=== PATIENT | male | born 1960 | race Caucasian/White ===

== ENCOUNTER 2017-05-19 07:42 | Emergency (ER) | END 2017-05-19 13:31 | disposition left against medical advice (07) ==

== ENCOUNTER 2018-08-06 10:45 | Inpatient (IN) | payer OTHER ==
[2018-08-06] VITALS (16 sets, daily range): BP systolic 119–164; BP diastolic 71–104; PULSE 87–104; RESP 13–26; Ht 188 cm; Wt 101.5 kg
[~2018-08-06] VITALS: Ht 188 cm; Wt 101.5 kg
[2018-08-06] MEDS ORDERED: SOD CHLORIDE 0.9% 1,000 ML IV STA (10:50)
[2018-08-06] MEDS ORDERED: PANTOPRAZOLE IV 80 MG in SOD CHLORIDE 0.9% 100 ML IVPB STA (10:50)
[2018-08-06] MEDS ORDERED: CEFTRIAXONE 1 GM/50 ML (PMX) 50 ML IVPB STA (10:52)
[2018-08-06] MEDS: PANTOPRAZOLE IV 80 MG in SOD CHLORIDE 0.9% 100 ML IVPB STA ×2 (10:52→11:30)
[2018-08-06] MEDS ORDERED: OCTREOTIDE 500 MCG in SOD CHLORIDE 0.9% 49 ML IV STA (10:52)
[2018-08-06] MEDS ORDERED: ONDANSETRON 4 MG INJ IV STA (10:52)
[2018-08-06] MEDS ORDERED: OCTREOTIDE 50 MCG in SOD CHLORIDE 0.9% 25 ML IVPB STA (10:52)
[2018-08-06] MEDS ORDERED: SOD CHLORIDE 0.9% 0 ML IV ONE (11:40)
[2018-08-06] MEDS ORDERED: FURO40TA4 PO (11:53)
[2018-08-06] MEDS ORDERED: SOD CHLORIDE 0.9% 1,000 ML IV SCH (13:00)
[2018-08-06] MEDS ORDERED: ACETAMINOPHEN 325 MG TAB PO PRN (13:00)
[2018-08-06] MEDS ORDERED: ACETAMINOPHEN 650 MG SUPP PR PRN (13:00)
[2018-08-06] MEDS ORDERED: DOCUSATE SODIUM 100 MG CAP PO PRN (13:00)
[2018-08-06] MEDS ORDERED: ONDANSETRON 4 MG INJ IV PRN (13:00)
[2018-08-06] MEDS ORDERED: NACL 0.9% 3 ML SYG IV SCH (13:00)
[2018-08-06] MEDS ORDERED: BISACODYL (EC) 5 MG TAB PO PRN (13:00)
--- NOTE | 2018-08-06 13:40 | ERD ---
ER Documentation Chief Complaint Chief Complaint BIB [facility] FOR EVAL OF HEMETEMESIS. HX OF LIVER CHIRHOSIS. HPI 57-year-old male with a history of alcoholism and liver cirrhosis brought in by ambulance from home for hematemesis and melena that started today. He had multiple loose bowel movements with black stool. He has had intermittent hematemesis. He is not complaining of abdominal pain or chest pain. He does complain of nausea at this time. He states that he was at another hospital about 3 weeks ago for generalized weakness and was noted to have anemia for which he did receive a blood transfusion. He denies any history of GI bleed. No recent fevers or chills. ROS All systems reviewed and are negative except as per history of present illness. Medications Home Meds Reported Medications Furosemide* (Furosemide*) 40 Mg Tablet, 40 MG PO DAILY, TAB 08/06/18 Allergies Allergies: Coded Allergies: No Known Allergy (Unverified , 08/06/18) PMhx/Soc History of Surgery: Yes (UMBILICAL HERNIA REPAIR) Anesthesia Reaction: No Hx Neurological Disorder: No Hx Respiratory Disorders: No Hx Cardiac Disorders: Yes (HTN) Hx Psychiatric Problems: Yes (ETOH ABUSE) Hx Miscellaneous Medical Probl: Yes (LIVER CIRRHOSIS) Hx Alcohol Use: Yes (ETOH ABUSE) Hx Substance Use: No Hx Tobacco Use: No Smoking Status: Unknown if ever smoked FmHx Family History: No diabetes Physical Exam Vitals Vital Signs Date Temp Pulse Resp B/P (MAP) Pulse Ox O2 O2 Flow FiO2 Time Delivery Rate 08/06/18 Nasal 3 11:00 Cannula 08/06/18 98.2 115 18 151/72 99 10:52 (98) Physical Exam Const: Ill-appearing, pale, appears intoxicated Head: Atraumatic Eyes: Pale conjunctiva, PERRLA ENT: Dry oral mucosa. Normal External Ears, Nose and Mouth. Neck: Full range of motion. No meningismus. Resp: Clear to auscultation bilaterally Cardio: Tachycardic with regular rhythm, no murmurs. Abd: Soft, distended with ascites. Nontender to palpation. Normal bowel sounds Skin: Pale. No petechiae or rashes Back: No midline or flank tenderness Ext: No cyanosis, or edema Neur: Awake and alert, oriented, normal speech, no facial asymmetry, moving all extremities Psych: Normal Mood and Affect Result Diagram: 08/06/18 1103 08/06/18 1103 Results 24 hrs Laboratory Tests Test 08/06/18 11:03 White Blood Count 8.7 10^3/ul Red Blood Count 2.21 10^6/ul Hemoglobin 6.2 g/dl Hematocrit 20.5 % Mean Corpuscular Volume 92.8 fl Mean Corpuscular Hemoglobin 28.1 pg Mean Corpuscular Hemoglobin Concent 30.2 g/dl Red Cell Distribution Width 15.2 % Platelet Count 177 10^3/UL Mean Platelet Volume 10.3 fl Immature Granulocytes % 0.600 % Neutrophils % % Segmented Neutrophils % (Manual) 86 % Band Neutrophils % (Manual) 5 % Lymphocytes % % Lymphocytes % (Manual) 5 % Monocytes % % Monocytes % (Manual) 4 % Eosinophils % % Basophils % % Nucleated Red Blood Cells % 0.0 /100WBC Immature Granulocytes # 0.050 10^3/ul Neutrophils # 10^3/ul Neutrophils # (Manual) 7.5 10^3/ul Band Neutrophils # 0.4 10^3/ul Lymphocytes (Manual) 0.4 10^3/ul Lymphocytes # 10^3/ul Monocytes # 10^3/ul Monocytes # (Manual) 0.3 10^3/ul Eosinophils # 10^3/ul Basophils # 10^3/ul Nucleated Red Blood Cells # 10^3/ul Platelet Estimate NORMAL Giant Platelets 1 % Polychromasia 3+ Hypochromasia 2+ Poikilocytosis 1+ Anisocytosis 1+ Microcytosis 1+ Ovalocytes 1+ Prothrombin Time 16.3 Sec Prothrombin Time Ratio 1.3 INR International Normalized Ratio 1.30 Activated Partial Thromboplast Time 36.6 Sec Sodium Level 144 mmol/L Potassium Level 4.0 mmol/L Chloride Level 109 mmol/L Carbon Dioxide Level 24 mmol/L Anion Gap 11 Blood Urea Nitrogen 22 mg/dl Creatinine 0.70 mg/dl Est Glomerular Filtrat Rate mL/min > 60 mL/min Glucose Level 179 mg/dl Calcium Level 8.3 mg/dl Total Bilirubin 1.2 mg/dl Direct Bilirubin 0.00 mg/dl Indirect Bilirubin 1.2 mg/dl Aspartate Amino Transf (AST/SGOT) 35 IU/L Alanine Aminotransferase (ALT/SGPT) 14 IU/L Alkaline Phosphatase 70 IU/L Troponin I < 0.012 ng/ml Total Protein 6.3 g/dl Albumin 3.3 g/dl Globulin 3.00 g/dl Albumin/Globulin Ratio 1.10 Current Medications Medications Dose Sig/Azar Start Time Status Last (Trade) Ordered Route PRN Stop Time Admin Dose Reason Admin Sodium 1,000 ml @ Q1H STAT 08/06/18 DC 08/06/18 Chloride 1,000 mls/hr IV 10:50 08/06/18 11:28 11:49 Pantoprazole 100 ml @ ONCE STAT 08/06/18 DC 08/06/18 80 mg/Sodium 400 mls/hr IVPB 10:50 08/06/18 11:30 Chloride 11:04 Pantoprazole 100 ml @ ONCE STAT 08/06/18 DC 80 mg/Sodium 400 mls/hr IVPB 10:52 08/06/18 Chloride 11:06 Octreotide 26 ml @ Q16M STAT 08/06/18 DC 08/06/18 Acetate 50 100 mls/hr IVPB 10:52 08/06/18 11:29 mcg/ Sodium 11:07 Chloride Octreotide 50 ml @ 5 ONCE STAT 08/06/18 08/06/18 Acetate 500 mls/hr IV 10:52 08/06/18 11:29 mcg/ Sodium 20:51 Chloride Ondansetron 4 mg ONCE STAT 08/06/18 DC 08/06/18 HCl (Zofran IV 10:52 08/06/18 11:29 Inj) 10:54 Ceftriaxone 50 ml @ ONCE STAT 08/06/18 DC 08/06/18 Sodium 100 mls/hr IVPB 10:52 08/06/18 11:29 11:21 Sodium 0 ml @ 0 Q0M ONCE 08/06/18 DC Chloride mls/hr IV 11:40 08/06/18 11:43 Sodium 1,000 ml @ Q8H IV 08/06/18 Chloride 125 mls/hr 13:00 IV Flush 3 ml PER 08/06/18 (NS 3 ml) PROTOCOL IV 13:00 Ondansetron 4 mg Q4 PRN IV 08/06/18 HCl (Zofran NAUSEA/VOMITI 13:00 Inj) NG 650 mg Q6H PRN 08/06/18 Acetaminophen PO .PAIN 1-3 13:00 (Tylenol OR TEMP Tab) 650 mg Q6H PRN 08/06/[address] .PAIN 1-3 13:00 (Tylenol OR TEMP Supp) 1 tab Q6H PRN 08/06/18 Acetaminophen PO .MOD PAIN 13:00 / 4-6 Hydrocodone Bitart ([place] (5/325)) Morphine 2 mg Q4H PRN 08/06/18 Sulfate IV .SEVERE 13:00 (morphine) PAIN 7-10 Docusate 100 mg Q12H PRN 08/06/18 Sodium PO 13:00 (Colace) .CONSTIPATION Bisacodyl 5 mg DAILY PRN 08/06/18 (Dulcolax) PO 13:00 .CONSTIPATION Procedures/MDM EMERGENT LABS AND DIAGNOSTIC STUDIES: Lab Results above were reviewed and interpreted by me. CBC: severe anemia, no evidence of infection CMP: BUN elevation likely secondary to GI bleed. No evidence of clinically significant electrolyte abnormality, acidosis, renal failure, hypoglycemia, liver disease, or biliary obstruction Troponin within normal limits, not indicative of cardiac ischemia 12-lead EKG was interpreted by Dannielle Reinoso MD: Sinus tachycardia 117 bpm right axis deviation Normal intervals No acute ST or T wave changes suggestive of acute ischemia or STEMI. Radiology Results as interpreted by Radiology below were reviewed by Drake Reinoso MD: Chest x-ray does not show any acute abnormalities Initial Nursing notes reviewed. Previous Medical Records requested via the Electronic Health Record. EMERGENCY DEPARTMENT COURSE / MEDICAL DECISION MAKING: Patient is presenting with evidence of acute upper GI bleeding, likely secondary to varices. He was tachycardic upon arrival and met sirs criteria, however I do not suspect sepsis. I feel that his vital sign abnormalities including the tachycardia and tachypnea are secondary to acute blood loss. Patient's hemoglobin was noted to be very low at 6.2. He did have active hematemesis while in the ED. For this reason 2 units of uncrossed blood was ordered emergently. 2 more units was ordered for crossmatch. Patient's blood pressure remained normal and he had no episodes of hypotension while in the ER. He was started on Protonix and octreotide IV. He was given prophylactic antibiotics in the setting of GI bleeding. I spoke with the GI physician on-call, who plans on doing emergent endoscopy on the patient. Patient will be admitted to the ICU for further management and work-up. Critical Care Management of Hemorrhage and Symptomatic Anemia: Time: 45 minutes Treatments/Evaluations: Close monitoring and management of bleeding sources while maintaining tight balance of fluid. With judicious assessment of anemia, coagulopathy and thrombocytopenia, while considering correction with blood products and medical therapy. Accepting Care Team: Current data and ongoing care discussed. Time: Time of admission Primary Provider: Dr. Rodriguez Consulting: Dr. Quiles with Gastroenterology Outstanding Data: none Departure Diagnosis: Primary Impression: Acute upper GI hemorrhage Additional Impressions: History of cirrhosis Alcoholic Condition: Critical VISHNU REINOSO MD Aug 06, 2018 13:36
--- NOTE | 2018-08-06 13:46 | CONS ---
Assessment/Plan Assessment/Plan Hospital Course (Demo Recall) Impression: Upper GI bleeding/hematemesis. Severe anemia likely secondary to above. History of alcohol abuse. Plan: Continue transfusion. Emergency EGD today. Consultation Date/Type/Reason Admit Date/Time Aug 06, 2018 at 12:15 Date of Consultation: Aug 06, 2018 Type of Consult Gastroenterology Reason for Consultation Hematemesis Date/Time of Note DATE: 08/06/18 TIME: 13:43 Hx of Present Illness 57-year-old male heavy ethanol abuse. Previous episode of gastrointestinal bleeding of unknown source. Presents to the emergency room after 3 or more epis odes of significant hematemesis and associated multiple episodes of melena. He is found to have significant anemia. At this point blood transfusion has been initiated. The patient will be evaluated endoscopically. Review of Systems: [A 12 system, review was conducted and is negative except as noted in the HPI or here.] Past Medical History Episode of upper GI bleeding etiology unclear. Alcohol abuse. Medical History: other Home Meds Reported Medications Furosemide* (Furosemide*) 40 Mg Tablet, 40 MG PO DAILY, TAB 08/06/18 Medications Current Medications Octreotide Acetate 500 mcg/ Sodium Chloride 50 ml @ 5 mls/hr ONCE STAT IV Last administered on 08/06/18at 11:29; Admin Dose 5 MLS/HR; Start 08/06/18 at 10:52; Stop 08/06/18 at 20:51 Sodium Chloride 1,000 ml @ 125 mls/hr Q8H IV ; Start 08/06/18 at 13:00 IV Flush (NS 3 ml) 3 ml PER PROTOCOL IV ; Start 08/06/18 at 13:00 Ondansetron HCl (Zofran Inj) 4 mg Q4 PRN IV NAUSEA/VOMITING; Start 08/06/18 at 13:00 Acetaminophen (Tylenol Tab) 650 mg Q6H PRN PO .PAIN 1-3 OR TEMP; Start 08/06/18 at 13:00 Acetaminophen (Tylenol Supp) 650 mg Q6H PRN [place] .PAIN 1-3 OR TEMP; Start 08/06/18 at 13:00 Acetaminophen/ Hydrocodone Bitart ([place] (5/325)) 1 tab Q6H PRN PO .MOD PAIN 4- 6; Start 08/06/18 at 13:00 Morphine Sulfate (morphine) 2 mg Q4H PRN IV .SEVERE PAIN 7-10; Start 08/06/18 at 13:00 Docusate Sodium (Colace) 100 mg Q12H PRN PO .CONSTIPATION; Start 08/06/18 at 13:00 Bisacodyl (Dulcolax) 5 mg DAILY PRN PO .CONSTIPATION; Start 08/06/18 at 13:00 Allergies: Coded Allergies: No Known Allergy (Unverified , 08/06/18) Past Surgical History Hernia repair Family History Significant Family History: no pertinent family hx Social History Alcohol Use: heavy Smoking Status: Unknown if ever smoked Drug Use: none Exam/Review of Systems Exam Vitals Vital Signs Date Temp Pulse Resp B/P (MAP) Pulse Ox O2 O2 Flow FiO2 Time Delivery Rate 08/06/18 Nasal 3 11:00 Cannula 08/06/18 98.2 115 18 151/72 99 10:52 (98) Exam PHYSICAL EXAMINATION: GENERAL: Well developed, well nourished, alert & oriented x 3, in no acute distress SKIN: No lesions, no stigmata chronic liver disease, no evidence of bleeding diathesis LYMPHATIC: No palpable lymphadenopathy. HEAD: Normocephalic, atraumatic, no tenderness. EYES: Pupils equal reactive to light and accommodation, full extraocular movements, sclera clear, non-icteric, no discharge. EARS/NOSE AND THROAT: Ears normal, nose normal, oropharynx normal, oral membranes well hydrated without lesions. NECK: Supple, no masses, thyroid normal, JVP within normal limits, carotids normal without bruits. CHEST: Inspection within normal limits. CARDIOVASCULAR: Heart: Regular rate and rhythm, no murmurs, gallops or rubs. Peripheral pulses present within normal limits, no cyanosis, clubbing or edemas. No pulsatile abdominal mass RESPIRATORY: Lungs clear to auscultation and percussion, no wheezing, no rubs GASTROINTESTINAL AND LIVER: Abdomen: Soft, non tenderness, moderately distended, no hernias, no masses, no organomegaly, no ascites, no guarding, no rebound tenderness, normoactive bowel sounds. Rectal: Deferred. GENITOURINARY: [Male genitalia within normal limits.][ EXTREMITIES: No cyanosis, clubbing or edema. [MUSCULO-SKELETAL: Gait and station within normal limits, range of motion adequate.] [NEUROLOGIC: Cranial nerves II-XII intact, Motor within normal limits, Sensory within normal limits. Reflexes within normal limits. PSYCHIATRIC: Alert & oriented x 3, mood/affect/judgement adequate] Results Result Diagram: 08/06/18 1103 08/06/18 1103 Results 24hrs Laboratory Tests Test 08/06/18 11:03 White Blood Count 8.7 Red Blood Count 2.21 L Hemoglobin 6.2 *L Hematocrit 20.5 L Mean Corpuscular Volume 92.8 Mean Corpuscular Hemoglobin 28.1 L Mean Corpuscular Hemoglobin Concent 30.2 L Red Cell Distribution Width 15.2 H Platelet Count 177 Mean Platelet Volume 10.3 Immature Granulocytes % 0.600 H Neutrophils % Segmented Neutrophils % (Manual) 86 H Band Neutrophils % (Manual) 5 H Lymphocytes % Lymphocytes % (Manual) 5 L Monocytes % Monocytes % (Manual) 4 Eosinophils % Basophils % Nucleated Red Blood Cells % 0.0 Immature Granulocytes # 0.050 H Neutrophils # Neutrophils # (Manual) 7.5 Band Neutrophils # 0.4 Lymphocytes (Manual) 0.4 L Lymphocytes # Monocytes # Monocytes # (Manual) 0.3 Eosinophils # Basophils # Nucleated Red Blood Cells # Platelet Estimate NORMAL Giant Platelets 1 H Polychromasia 3+ Hypochromasia 2+ Poikilocytosis 1+ Anisocytosis 1+ Microcytosis 1+ Ovalocytes 1+ Prothrombin Time 16.3 H Prothrombin Time Ratio 1.3 INR International Normalized Ratio 1.30 Activated Partial Thromboplast Time 36.6 H Sodium Level 144 Potassium Level 4.0 Chloride Level 109 Carbon Dioxide Level 24 Anion Gap 11 Blood Urea Nitrogen 22 H Creatinine 0.70 Est Glomerular Filtrat Rate mL/min > 60 Glucose Level 179 Calcium Level 8.3 L Total Bilirubin 1.2 Direct Bilirubin 0.00 Indirect Bilirubin 1.2 H Aspartate Amino Transf (AST/SGOT) 35 Alanine Aminotransferase (ALT/SGPT) 14 Alkaline Phosphatase 70 Troponin I < 0.012 Total Protein 6.3 Albumin 3.3 Globulin 3.00 Albumin/Globulin Ratio 1.10 Medications Medication Current Medications Octreotide Acetate 500 mcg/ Sodium Chloride 50 ml @ 5 mls/hr ONCE STAT IV Last administered on 08/06/18at 11:29; Admin Dose 5 MLS/HR; Start 08/06/18 at 10:52; Stop 08/06/18 at 20:51 Sodium Chloride 1,000 ml @ 125 mls/hr Q8H IV ; Start 08/06/18 at 13:00 IV Flush (NS 3 ml) 3 ml PER PROTOCOL IV ; Start 08/06/18 at 13:00 Ondansetron HCl (Zofran Inj) 4 mg Q4 PRN IV NAUSEA/VOMITING; Start 08/06/18 at 13:00 Acetaminophen (Tylenol Tab) 650 mg Q6H PRN PO .PAIN 1-3 OR TEMP; Start 08/06/18 at 13:00 Acetaminophen (Tylenol Supp) 650 mg Q6H PRN [place] .PAIN 1-3 OR TEMP; Start 08/06/18 at 13:00 Acetaminophen/ Hydrocodone Bitart ([place] (5/325)) 1 tab Q6H PRN PO .MOD PAIN 4- 6; Start 08/06/18 at 13:00 Morphine Sulfate (morphine) 2 mg Q4H PRN IV .SEVERE PAIN 7-10; Start 08/06/18 at 13:00 Docusate Sodium (Colace) 100 mg Q12H PRN PO .CONSTIPATION; Start 08/06/18 at 13:00 Bisacodyl (Dulcolax) 5 mg DAILY PRN PO .CONSTIPATION; Start 08/06/18 at 13:00 GONZALO GUSMAN MD Aug 06, 2018 13:46
--- NOTE | 2018-08-06 14:05 | HP ---
Date/Time of Note Date/Time of Note DATE: 08/06/18 TIME: 13:40 Assessment/Plan VTE Prophylaxis SCD contraindicated: low risk/ambulating Pharmacological prophylaxis: NA/contraindicated Pharm contraindication: low risk/ambulating, bleeding Lines/Catheters IV Catheter Type (from Nrsg): Saline Lock Assessment/Plan Hospital Course Chief complaint GI bleed History of present illness Melena 2 days. Nausea hematemesis today. Chronic alcoholic. Last drink yesterday ER- vss PMH ETOH Depression Back Pain Ascites PSH Back Surgery/ Benign Tumor Umbilical Hernia SH occ tobacco; Etoh whiskey FH Father- ca esophagus Brother- Dementia Sister- Cad/ mi ROS Neuro: no headache/ loc/ vision changes Cor: no chest pain/ dyspnea/ edema Chest: no dyspnea; +cough; no fever GI: vomiting. no diarrhea, constipation : no hematuria, dysuria, abd pain MS: no edema, falls, rash Psy: depression; no anxiety, agitation Heme: melena, hematemesis; no hematuria Endo: no diabetes, thyroid dz, dyslipidemia PE Heent: No pallor adenopathy Regular no m/r/g Clear Benign No edema Assessment and plan 1. GI bleed likely upper mod stable, continue PPI EGD later today 2. Acute blood loss anemia 3. Alcoholism, watch for withdrawal 4. Portal hypertension 5. History of ascites 6. Major depression 7. Tobacco abuse 8. Possible COPD 9. History of salivary gland growth outpatient CT; defer to outpatient therapy Result Diagram: 08/06/18 1103 08/06/18 1103 Results 24hrs Laboratory Tests Test 08/06/18 11:03 White Blood Count 8.7 Red Blood Count 2.21 L Hemoglobin 6.2 *L Hematocrit 20.5 L Mean Corpuscular Volume 92.8 Mean Corpuscular Hemoglobin 28.1 L Mean Corpuscular Hemoglobin Concent 30.2 L Red Cell Distribution Width 15.2 H Platelet Count 177 Mean Platelet Volume 10.3 Immature Granulocytes % 0.600 H Neutrophils % Segmented Neutrophils % (Manual) 86 H Band Neutrophils % (Manual) 5 H Lymphocytes % Lymphocytes % (Manual) 5 L Monocytes % Monocytes % (Manual) 4 Eosinophils % Basophils % Nucleated Red Blood Cells % 0.0 Immature Granulocytes # 0.050 H Neutrophils # Neutrophils # (Manual) 7.5 Band Neutrophils # 0.4 Lymphocytes (Manual) 0.4 L Lymphocytes # Monocytes # Monocytes # (Manual) 0.3 Eosinophils # Basophils # Nucleated Red Blood Cells # Platelet Estimate NORMAL Giant Platelets 1 H Polychromasia 3+ Hypochromasia 2+ Poikilocytosis 1+ Anisocytosis 1+ Microcytosis 1+ Ovalocytes 1+ Prothrombin Time 16.3 H Prothrombin Time Ratio 1.3 INR International Normalized Ratio 1.30 Activated Partial Thromboplast Time 36.6 H Sodium Level 144 Potassium Level 4.0 Chloride Level 109 Carbon Dioxide Level 24 Anion Gap 11 Blood Urea Nitrogen 22 H Creatinine 0.70 Est Glomerular Filtrat Rate mL/min > 60 Glucose Level 179 Calcium Level 8.3 L Total Bilirubin 1.2 Direct Bilirubin 0.00 Indirect Bilirubin 1.2 H Aspartate Amino Transf (AST/SGOT) 35 Alanine Aminotransferase (ALT/SGPT) 14 Alkaline Phosphatase 70 Troponin I < 0.012 Total Protein 6.3 Albumin 3.3 Globulin 3.00 Albumin/Globulin Ratio 1.10 HPI/ROS Admit Date/Time Admit Date/Time Aug 06, 2018 at 12:15 PMH/Family/Social Past Medical History Medications Current Medications Octreotide Acetate 500 mcg/ Sodium Chloride 50 ml @ 5 mls/hr ONCE STAT IV Last administered on 08/06/18at 11:29; Admin Dose 5 MLS/HR; Start 08/06/18 at 10:52; Stop 08/06/18 at 20:51 Sodium Chloride 1,000 ml @ 125 mls/hr Q8H IV ; Start 08/06/18 at 13:00 IV Flush (NS 3 ml) 3 ml PER PROTOCOL IV ; Start 08/06/18 at 13:00 Ondansetron HCl (Zofran Inj) 4 mg Q4 PRN IV NAUSEA/VOMITING; Start 08/06/18 at 13:00 Acetaminophen (Tylenol Tab) 650 mg Q6H PRN PO .PAIN 1-3 OR TEMP; Start 08/06/18 at 13:00 Acetaminophen (Tylenol Supp) 650 mg Q6H PRN [place] .PAIN 1-3 OR TEMP; Start 08/06/18 at 13:00 Acetaminophen/ Hydrocodone Bitart ([place] (5/325)) 1 tab Q6H PRN PO .MOD PAIN 4- 6; Start 08/06/18 at 13:00 Morphine Sulfate (morphine) 2 mg Q4H PRN IV .SEVERE PAIN 7-10; Start 08/06/18 at 13:00 Docusate Sodium (Colace) 100 mg Q12H PRN PO .CONSTIPATION; Start 08/06/18 at 13:00 Bisacodyl (Dulcolax) 5 mg DAILY PRN PO .CONSTIPATION; Start 08/06/18 at 13:00 Coded Allergies: No Known Allergy (Unverified , 08/06/18) Social History Smoking Status: Unknown if ever smoked Exam/Review of Systems Vital Signs Vitals Vital Signs Date Temp Pulse Resp B/P (MAP) Pulse Ox O2 O2 Flow FiO2 Time Delivery Rate 08/06/18 Nasal 3 11:00 Cannula 08/06/18 98.2 115 18 151/72 99 10:52 (98) VALERIE CALVILLO MD Aug 06, 2018 13:56
[2018-08-06] MEDS ORDERED: ALBUTEROL 0.083% (NEB) 2.5 MG/3 ML AMP HHN PRN (14:30)
[2018-08-06] MEDS ORDERED: LORAZEPAM 2 MG INJ IV PRN (14:30)
--- NOTE | 2018-08-06 14:37 | PREAC ---
Date/Time of Note Date/Time of Note DATE: 08/06/18 TIME: 14:34 Anesthesia Eval and Record Evaluation Time Pre-Procedure Interview DATE: 08/06/18 TIME: 14:34 Age 57 Sex male NPO: 8 hrs Preoperative diagnosis GI Bleed Planned procedure EGD Past Medical History Past Medical History: Includes Hepatic: Alcohol abuse GI: Obesity, Other (Cirrhosis, Portal HTN, Ascitis) Heme: Anemia Psych: Depression Surgery & Anesthesia Issues No known issue Meds Anticoagulation: No Beta Antoine within 24 hr: No Reason Beta Antoine not given: Pt. not on B-Antoine Reported Medications Furosemide* (Furosemide*) 40 Mg Tablet, 40 MG PO DAILY, TAB 08/06/18 Current Medications Octreotide Acetate 500 mcg/ Sodium Chloride 50 ml @ 5 mls/hr ONCE STAT IV Last administered on 08/06/18at 11:29; Admin Dose 5 MLS/HR; Start 08/06/18 at 10:52; Stop 08/06/18 at 20:51 Sodium Chloride 1,000 ml @ 125 mls/hr Q8H IV ; Start 08/06/18 at 13:00 IV Flush (NS 3 ml) 3 ml PER PROTOCOL IV ; Start 08/06/18 at 13:00 Ondansetron HCl (Zofran Inj) 4 mg Q4 PRN IV NAUSEA/VOMITING; Start 08/06/18 at 13:00 Acetaminophen (Tylenol Tab) 650 mg Q6H PRN PO .PAIN 1-3 OR TEMP; Start 08/06/18 at 13:00 Acetaminophen (Tylenol Supp) 650 mg Q6H PRN [place] .PAIN 1-3 OR TEMP; Start 08/06/18 at 13:00 Acetaminophen/ Hydrocodone Bitart ([place] (5/325)) 1 tab Q6H PRN PO .MOD PAIN 4- 6; Start 08/06/18 at 13:00 Morphine Sulfate (morphine) 2 mg Q4H PRN IV .SEVERE PAIN 7-10; Start 08/06/18 at 13:00 Docusate Sodium (Colace) 100 mg Q12H PRN PO .CONSTIPATION; Start 08/06/18 at 13:00 Bisacodyl (Dulcolax) 5 mg DAILY PRN PO .CONSTIPATION; Start 08/06/18 at 13:00 Albuterol (Proventil 0.083% (Neb)) 1.25 mg Q2H RESP THERAPY PRN HHN SHORTNESS OF BREATH; Start 08/06/18 at 14:30 Lorazepam (Ativan) 1 mg Q4H PRN IV CONTROL WITHDRAWAL SYMPTOMS; Start 08/06/18 at 14:30 Multivitamins 10 ml/Thiamine HCl 100 mg/Folic Acid 1 mg/Sodium Chloride 1,011.2 ml @ 125 mls/ hr DAILY@09 IVPB ; Start 08/07/18 at 09:00 Meds reviewed: Yes Allergies Coded Allergies: No Known Allergy (Unverified , 08/06/18) Allergies Reviewed: Yes Labs/Studies Labs Reviewed: Reviewed by anesthesiologist Result Diagram: 08/06/18 1103 08/06/18 1103 Laboratory Tests 08/06/18 11:03 Blood Bank Test 08/06/18 11:15 Antibody Screen NEGATIVE Blood Product Summary Counts Blood Type AB POSITIVE Crossmatch Red Blood Cells test: N/A Pre-procedure Exam Last vitals Vital Signs Date Temp Pulse Resp B/P (MAP) Pulse Ox O2 O2 Flow FiO2 Time Delivery Rate 08/06/18 98.0 100 16 140/89 100 Nasal 2.0 13:15 (106) Cannula Airway: Adequate mouth opening Mallampati: Mallampati III Teeth: Normal Lung: Normal Heart: Normal ASA Physical Status ASA physical status: 3 Emergency: E Pre-operative Attestations Prior to commencing anesthesia and surgery, the patient was re-evaluated, there was verification of: *The patient's identity *The results of appropriate recent lab work and preoperative vital signs *The above evaluation not changing prior to induction *Anesthetic plan, risk benefits, alternative and complications discussed with patient/family; questions answered; patient/family understands, accepts and wishes to proceed. JAIME MITCHELL MD Aug 06, 2018 14:37
[2018-08-06] MEDS ORDERED: PROPOFOL 60 ML ONE (14:41)
--- NOTE | 2018-08-06 15:05 | PAC ---
Date/Time of Note Date/Time of Note DATE: 08/06/18 TIME: 15:05 Post-Anesthesia Notes Post-Anesthesia Note Last documented vital signs Vital Signs Date Temp Pulse Resp B/P (MAP) Pulse Ox O2 O2 Flow FiO2 Time Delivery Rate 08/06/18 98.0 100 16 140/89 100 Nasal 2.0 13:15 (106) Cannula Activity: WNL Respiratory function: WNL Cardiovascular function: WNL Mental status: Baseline Pain reasonably controlled: Yes Hydration appropriate: Yes Nausea/Vomiting absent: Yes JAIME MITCHELL MD Aug 06, 2018 15:05
--- NOTE | 2018-08-06 15:09 | OPPN ---
Date/Time of Note Date/Time of Note DATE: 08/06/18 TIME: 15:05 Proc Note GI Procedure Date 08/06/18 Indication: diagnostic, treatment Pre-procedure Diagnosis GI bleeding/hematemesis Post-procedure Diagnosis Impression: Grade II-III/IV esophageal varices with stigmata recent bleeding i.e. white plug x2 Moderate amounts of all blood and clots obscuring the proximal fundus of the stomach Otherwise no potential bleeding lesions identified. Post endoscopic variceal ligation x5 Plan: Continue Protonix and octreotide drips. Monitor H&H and transfuse as necessary. Procedure Performed: Endoscopy (With endoscopic variceal ligation) Surgeon GONZALO GUSMAN MD See signature line Spa Manager/Esthetician none Anesthesia Type: MAC Anesthesiologist: JAIME MITCHELL MD Tourniquet Time none EBL none Transfusion required none Biopsy 1: None Grafts/Implants none Tubes/Drains none Complication(s) none Disposition: other (ICU) Procedure Description After informed consent, with the patient/relatives understanding the procedure, its indications, potential risks and complications, including but not limited to: allergic reaction, bleeding, perforation or infection, and after all pertinent questions were answered to the patients satisfaction, the patient/relatives signed witnessed informed consent. Following this, premedication was administered slowly IV push under careful cardiovascular and respiratory monitoring with pulse oximetry, automatic blood pressure, and desk monitor. Once the sedative effect was achieved the patient was place in the left lateral decubitus, the panendoscope was introduced and advanced under visual control. Careful examination of the upper gastrointestinal tract, both on insertion as well as withdrawal of the instrument disclosing the following findings: ESOPHAGUS: the mucosa of the entire esophagus was carefully examined and showed the following findings: There are grade II-III/IV of 0 varices with stigmata recent bleeding i.e. white plug x2. Endoscopic variceal ligation x5 was performed at the end of the procedure. Otherwise the mucosa appears within normal limits. There is no evid ence of esophagitis, neoplasm, or stricture. No Hiatal Hernia identified. STOMACH: Upon entrance to the stomach air was insufflated, the gastric phillips distended normally. The mucosa of the fundus, body and antrum of the stomach was carefully examined both head-on and on retroflexion, and showed the following findings: Moderate amounts of old blood pooling in the greater curvature fundus of the stomach and obscure this area. Otherwise no bleeding lesions or potential bleeding lesions identified in the remainder of the stomach. PYLORUS: The pylorus was carefully examined and showed the following findings: the pylorus appears patent and within normal limits, with no evidence of gastric outlet obstruction. DUODENUM: The duodenal mucosa was carefully examined in the duodenal bulb as well as the second portion of the duodenum and showed the following findings: the mucosa appears unremarkable with no evidence of duodenitis, ulcer or neoplasm. Copies To: CC: GONZALO GUSMAN MD ; GONZALO GUSMAN MD Aug 06, 2018 15:09
[2018-08-06] MEDS: morphine 2 MG INJ IV PRN ×2 (16:21→21:06)
[2018-08-06] MEDS: OCTREOTIDE 500 MCG in DEXTROSE 5% 49 ML IV SCH (18:03)
[2018-08-06] MEDS: PANTOPRAZOLE IV 80 MG in SOD CHLORIDE 0.9% 100 ML IV SCH (18:05)
[2018-08-06] MEDS: MULTIVITAMINS 10 ML, THIAMINE 100 MG, FOLIC ACID 1 MG in SOD CHLORIDE 0.9% 1,000 ML IVPB SCH (18:05)
[2018-08-06] MEDS ORDERED: OCTREOTIDE 500 MCG in DEXTROSE 5% 49 ML IV SCH (21:00)
[2018-08-07] VITALS (42 sets, daily range): BP systolic 84–161; BP diastolic 58–120; PULSE 75–90; RESP 10–22
[2018-08-07] MEDS ORDERED: LABETALOL HCL 20MG INJ IV PRN (01:00)
[2018-08-07] MEDS: PANTOPRAZOLE IV 80 MG in SOD CHLORIDE 0.9% 100 ML IV SCH ×3 (03:30→22:56)
[2018-08-07] MEDS: morphine 2 MG INJ IV PRN ×4 (05:19→21:15)
[2018-08-07] MEDS: OCTREOTIDE 500 MCG in DEXTROSE 5% 49 ML IV SCH ×2 (07:14→22:57)
[2018-08-07] MEDS: HYDROCODONE/APAP (5/325) TAB PO PRN ×3 (07:45→23:37)
[2018-08-07] MEDS: MULTIVITAMINS 10 ML, THIAMINE 100 MG, FOLIC ACID 1 MG in SOD CHLORIDE 0.9% 1,000 ML IVPB SCH ×2 (08:37→11:06)
[2018-08-07] MEDS ORDERED: MULTIVITAMINS 10 ML, THIAMINE 100 MG, FOLIC ACID 1 MG in SOD CHLORIDE 0.9% 1,000 ML IVPB SCH (09:00)
--- NOTE | 2018-08-07 19:50 | PN ---
Date/Time of Note Date/Time of Note DATE: 08/07/18 TIME: 19:46 Assessment/Plan VTE Prophylaxis Risk score (from [facility])>0 risk: 2 SCD applied (from [facility]): Yes SCD contraindicated: low risk/ambulating Pharmacological prophylaxis: NA/contraindicated Pharm contraindication: bleeding Lines/Catheters IV Catheter Type (from [facility]): Peripheral IV Assessment/Plan Hospital Course A/P 1. GI bleed/ upper, mod stable, sp egd/ esophageal banding *5. cont PPI/ Boni statin 2. Acute blood loss anemia 3. Alcoholism, watch for withdrawal 4. Portal hypertension 5. History of ascites 6. Major depression 7. Tobacco abuse 8. Possible COPD 9. History of salivary gland growth outpatient CT; defer to outpatient therapy 10. Hypothyroidism? t4/t3- P 11. Esophageal Varices III/IV S: dark stools overnight. received 4th unit. remains on ggt's O: vss; sr PE No pallor Regular no m/r/g Clear Benign No edema Result Diagram: 08/07/1851608/07/1817 Results 24hrs Laboratory Tests Test 08/06/18 22:16 08/07/18 05:17 Hemoglobin 7.7 L 8.5 L Hematocrit 24.2 L 26.2 L White Blood Count 5.6 # Red Blood Count 2.90 #L Mean Corpuscular Volume 90.3 Mean Corpuscular Hemoglobin 29.3 Mean Corpuscular Hemoglobin Concent 32.4 Red Cell Distribution Width 15.2 H Platelet Count 102 #L Mean Platelet Volume 10.6 H Immature Granulocytes % 0.500 H Neutrophils % 72.5 Lymphocytes % 17.6 Monocytes % 8.0 Eosinophils % 0.9 Basophils % 0.5 Nucleated Red Blood Cells % 0.0 Immature Granulocytes # 0.030 Neutrophils # 4.1 Lymphocytes # 1.0 Monocytes # 0.5 Eosinophils # 0.1 Basophils # 0.0 Nucleated Red Blood Cells # 0.0 Sodium Level 140 Potassium Level 3.6 Chloride Level 109 Carbon Dioxide Level 27 Anion Gap 4 L Blood Urea Nitrogen 16 Creatinine 0.73 Est Glomerular Filtrat Rate mL/min > 60 Glucose Level 104 # Hemoglobin A1c 5.4 Calcium Level 7.8 L Phosphorus Level 2.2 L Magnesium Level 1.7 Total Bilirubin 1.6 H Direct Bilirubin 0.00 Indirect Bilirubin 1.6 H Aspartate Amino Transf (AST/SGOT) 41 Alanine Aminotransferase (ALT/SGPT) 18 Alkaline Phosphatase 57 Total Protein 5.3 #L Albumin 2.8 L Globulin 2.50 Albumin/Globulin Ratio 1.12 Thyroid Stimulating Hormone (TSH) 0.054 L Exam/Review of Systems Exam Vitals Vital Signs Date Temp Pulse Resp B/P (MAP) Pulse Ox O2 O2 Flow FiO2 Time Delivery Rate 08/07/18 76 14 139/101 100 Room Air 19:00 (114) 08/07/18 98.2 16:00 08/06/18 2.0 13:15 Intake and Output 08/06/18 08/06/18 08/07/18 1515:00 23:00 07:00 IntakeIntake Total 1731 ml 2217.5 ml 1375.0 ml OutputOutput Total 400 ml 1220 ml 500 ml BalanceBalance 1331 ml 997.5 ml 875.0 ml Results Results 24hrs Laboratory Tests Test 08/06/18 22:16 08/07/18 05:17 Hemoglobin 7.7 L 8.5 L Hematocrit 24.2 L 26.2 L White Blood Count 5.6 # Red Blood Count 2.90 #L Mean Corpuscular Volume 90.3 Mean Corpuscular Hemoglobin 29.3 Mean Corpuscular Hemoglobin Concent 32.4 Red Cell Distribution Width 15.2 H Platelet Count 102 #L Mean Platelet Volume 10.6 H Immature Granulocytes % 0.500 H Neutrophils % 72.5 Lymphocytes % 17.6 Monocytes % 8.0 Eosinophils % 0.9 Basophils % 0.5 Nucleated Red Blood Cells % 0.0 Immature Granulocytes # 0.030 Neutrophils # 4.1 Lymphocytes # 1.0 Monocytes # 0.5 Eosinophils # 0.1 Basophils # 0.0 Nucleated Red Blood Cells # 0.0 Sodium Level 140 Potassium Level 3.6 Chloride Level 109 Carbon Dioxide Level 27 Anion Gap 4 L Blood Urea Nitrogen 16 Creatinine 0.73 Est Glomerular Filtrat Rate mL/min > 60 Glucose Level 104 # Hemoglobin A1c 5.4 Calcium Level 7.8 L Phosphorus Level 2.2 L Magnesium Level 1.7 Total Bilirubin 1.6 H Direct Bilirubin 0.00 Indirect Bilirubin 1.6 H Aspartate Amino Transf (AST/SGOT) 41 Alanine Aminotransferase (ALT/SGPT) 18 Alkaline Phosphatase 57 Total Protein 5.3 #L Albumin 2.8 L Globulin 2.50 Albumin/Globulin Ratio 1.12 Thyroid Stimulating Hormone (TSH) 0.054 L Medications Medication Current Medications IV Flush (NS 3 ml) 3 ml PER PROTOCOL IV ; Start 08/06/18 at 13:00 Ondansetron HCl (Zofran Inj) 4 mg Q4 PRN IV NAUSEA/VOMITING; Start 08/06/18 at 13:00 Acetaminophen (Tylenol Tab) 650 mg Q6H PRN PO .PAIN 1-3 OR TEMP; Start 08/06/18 at 13:00 Acetaminophen (Tylenol Supp) 650 mg Q6H PRN [place] .PAIN 1-3 OR TEMP; Start 08/06/18 at 13:00 Acetaminophen/ Hydrocodone Bitart ([place] (5/325)) 1 tab Q6H PRN PO .MOD PAIN 4- 6 Last administered on 08/07/18at 18:48; Admin Dose 1 TAB; Start 08/06/18 at 13:00 Morphine Sulfate (morphine) 2 mg Q4H PRN IV .SEVERE PAIN 7-10 Last administered on 08/07/18at 16:41; Admin Dose 2 MG; Start 08/06/18 at 13:00 Docusate Sodium (Colace) 100 mg Q12H PRN PO .CONSTIPATION; Start 08/06/18 at 13:00 Bisacodyl (Dulcolax) 5 mg DAILY PRN PO .CONSTIPATION; Start 08/06/18 at 13:00 Albuterol (Proventil 0.083% (Neb)) 1.25 mg Q2H RESP THERAPY PRN HHN SHORTNESS OF BREATH; Start 08/06/18 at 14:30 Lorazepam (Ativan) 1 mg Q4H PRN IV CONTROL WITHDRAWAL SYMPTOMS Last administered on 08/06/18at 16:21; Admin Dose 1 MG; Start 08/06/18 at 14:30 Pantoprazole 80 mg/Sodium Chloride 100 ml @ 10 mls/hr Q10H IV Last administered on 08/07/18at 12:24; Admin Dose 10 MLS/HR; Start 08/06/18 at 16:00 Multivitamins 10 ml/Thiamine HCl 100 mg/Folic Acid 1 mg/Sodium Chloride 1,011.2 ml @ 125 mls/ hr DAILY@09 IVPB Last administered on 08/07/18at 11:06; Admin Dose 125 MLS/HR; Start 08/06/18 at 18:00 Octreotide Acetate 500 mcg/ Dextrose 50 ml @ 2.5 mls/hr Q20H IV Last administered on 08/07/18at 07:14; Admin Dose 2.5 MLS/HR; Start 08/06/18 at 18:00 Labetalol HCl (Labetalol) 10 mg PRN PRN IV FOR SBP>160; Start 08/07/18 at 01:00 VALERIE CALVILLO MD Aug 07, 2018 19:50
[2018-08-08] VITALS (23 sets, daily range): BP systolic 87–141; BP diastolic 63–109; PULSE 64–79; RESP 7–20
[2018-08-08] MEDS: HYDROCODONE/APAP (5/325) TAB PO PRN (05:15)
[2018-08-08] MEDS: PANTOPRAZOLE IV 80 MG in SOD CHLORIDE 0.9% 100 ML IV SCH (08:23)
[2018-08-08] MEDS: MULTIVITAMINS 10 ML, THIAMINE 100 MG, FOLIC ACID 1 MG in SOD CHLORIDE 0.9% 1,000 ML IVPB SCH (08:23)
[2018-08-08] MEDS ORDERED: D5W-0.45 NACL + KCL 10 MEQ 1,000 ML IV SCH (09:00)
[2018-08-08] MEDS: morphine 2 MG INJ IV PRN (09:44)
--- NOTE | 2018-08-08 14:35 | PN ---
Date/Time of Note Date/Time of Note DATE: 08/08/18 TIME: 14:30 Assessment/Plan VTE Prophylaxis Risk score (from Ns)>0 risk: 2 SCD applied (from [facility]): Yes Pharmacological prophylaxis: NA/contraindicated Pharm contraindication: bleeding Lines/Catheters [facility] Peripheral IV Assessment/Plan Hospital Course Assessment: Impression: Upper GI bleeding/hematemesis. EGD 08/07/18 Impression: Grade II-III/IV esophageal varices with stigmata recent bleeding i.e. white p lug x2 Moderate amounts of all blood and clots obscuring the proximal fundus of the stomach Otherwise no potential bleeding lesions identified. Post endoscopic variceal ligation x5 Severe anemia likely secondary to above. History of alcohol abuse Plan: Advance diet to full liquids Monitor h/h transfuse as needed Continue PPI therapy BID Start propanolol 10 mg p.o. 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 Subjective: Course reviewed with nursing staff Patient interviewed and examined All labs, imaging and other results reviewed The patient resting in bed vital signs are stable no overt signs of GI bleed. Discussed results of EGD patient verbalized understanding. Plan to advance diet to full liquids maintain close observation Exam PHYSICAL EXAMINATION: GENERAL: Alert & oriented x 3, in no acute distress SKIN: No lesions EYES: Pupils equal reactive to light and accommodation, full extraocular movements, sclera clear, non-icteric, no discharge. EARS/NOSE AND THROAT: Ears normal, nose normal, oropharynx normal, oral membranes well hydrated without lesions. NECK: Supple, no masses CHEST: Inspection within normal limits. CARDIOVASCULAR: Heart: Regular rate and rhythm RESPIRATORY: Lungs clear to auscultation and percussion, no wheezing, no rubs GASTROINTESTINAL AND LIVER: Abdomen: Soft, epigastric tenderness, moderately distended, no hernias, no masses, no organomegaly, no ascites, no guarding, no rebound tenderness, normoactive bowel sounds. Rectal: Deferred. Result Diagram: 08/08/18 0706 08/08/18 0451 Results 24hrs Laboratory Tests Test 08/07/18 21:34 08/08/18 04:51 08/08/18 05:37 08/08/18 07:06 Hemoglobin 8.0 L 7.8 L 7.8 L Hematocrit 24.8 L 24.8 L 24.4 L White Blood Count 4.2 #L Red Blood Count 2.72 L Mean Corpuscular 91.2 Volume Mean Corpuscular 28.7 L Hemoglobin Mean Corpuscular 31.5 L Hemoglobin Concen t Red Cell 15.6 H Distribution Width Platelet Count 89 L Mean Platelet 10.6 H Volume Immature 0.500 H Granulocytes % Neutrophils % 68.3 Lymphocytes % 19.3 Monocytes % 8.8 Eosinophils % 2.9 Basophils % 0.2 Nucleated Red 0.0 Blood Cells % Immature 0.020 Granulocytes # Neutrophils # 2.9 Lymphocytes # 0.8 Monocytes # 0.4 Eosinophils # 0.1 Basophils # 0.0 Nucleated Red 0.0 Blood Cells # Sodium Level 139 Potassium Level 3.7 Chloride Level 110 Carbon Dioxide 26 Level Anion Gap 3 L Blood Urea 13 Nitrogen Creatinine 0.75 Est Glomerular > 60 Filtrat Rate mL/min Glucose Level 86 Calcium Level 7.6 L Phosphorus Level 3.0 Magnesium Level 1.8 Free Thyroxine 0.77 Total 0.57 L Triiodothyronine Lab Scanned BLOOD TRANSFUSION Report Exam/Review of Systems Exam Vitals Vital Signs Date Temp Pulse Resp B/P (MAP) Pulse Ox O2 O2 Flow FiO2 Time Delivery Rate 08/08/18 70 9 122/95 100 13:00 (104) 08/08/18 Room Air 12:00 08/08/18 98.3 08:00 08/06/18 2.0 13:15 Intake and Output 08/07/18 08/07/18 08/08/18 1515:00 23:00 07:00 IntakeIntake Total 1460.0 ml 760.0 ml 42.5 ml OutputOutput Total 800 ml 825 ml 250 ml BalanceBalance 660.0 ml -65.0 ml -207.5 ml Results Results 24hrs Laboratory Tests Test 08/07/18 21:34 08/08/18 04:51 08/08/18 05:37 08/08/18 07:06 Hemoglobin 8.0 L 7.8 L 7.8 L Hematocrit 24.8 L 24.8 L 24.4 L White Blood Count 4.2 #L Red Blood Count 2.72 L Mean Corpuscular 91.2 Volume Mean Corpuscular 28.7 L Hemoglobin Mean Corpuscular 31.5 L Hemoglobin Concen t Red Cell 15.6 H Distribution Width Platelet Count 89 L Mean Platelet 10.6 H Volume Immature 0.500 H Granulocytes % Neutrophils % 68.3 Lymphocytes % 19.3 Monocytes % 8.8 Eosinophils % 2.9 Basophils % 0.2 Nucleated Red 0.0 Blood Cells % Immature 0.020 Granulocytes # Neutrophils # 2.9 Lymphocytes # 0.8 Monocytes # 0.4 Eosinophils # 0.1 Basophils # 0.0 Nucleated Red 0.0 Blood Cells # Sodium Level 139 Potassium Level 3.7 Chloride Level 110 Carbon Dioxide 26 Level Anion Gap 3 L Blood Urea 13 Nitrogen Creatinine 0.75 Est Glomerular > 60 Filtrat Rate mL/min Glucose Level 86 Calcium Level 7.6 L Phosphorus Level 3.0 Magnesium Level 1.8 Free Thyroxine 0.77 Total 0.57 L Triiodothyronine Lab Scanned BLOOD TRANSFUSION Report Medications Medication Current Medications IV Flush (NS 3 ml) 3 ml PER PROTOCOL IV ; Start 08/06/18 at 13:00 Ondansetron HCl (Zofran Inj) 4 mg Q4 PRN IV NAUSEA/VOMITING; Start 08/06/18 at 13:00 Acetaminophen (Tylenol Tab) 650 mg Q6H PRN PO .PAIN 1-3 OR TEMP; Start 08/06/18 at 13:00 Acetaminophen (Tylenol Supp) 650 mg Q6H PRN [place] .PAIN 1-3 OR TEMP; Start 08/06/18 at 13:00 Acetaminophen/ Hydrocodone Bitart ([place] (5/325)) 1 tab Q6H PRN PO .MOD PAIN 4- 6 Last administered on 08/08/18at 05:15; Admin Dose 1 TAB; Start 08/06/18 at 13:00 Morphine Sulfate (morphine) 2 mg Q4H PRN IV .SEVERE PAIN 7-10 Last administered on 08/08/18at 09:44; Admin Dose 2 MG; Start 08/06/18 at 13:00 Docusate Sodium (Colace) 100 mg Q12H PRN PO .CONSTIPATION; Start 08/06/18 at 13:00 Bisacodyl (Dulcolax) 5 mg DAILY PRN PO .CONSTIPATION; Start 08/06/18 at 13:00 Albuterol (Proventil 0.083% (Neb)) 1.25 mg Q2H RESP THERAPY PRN HHN SHORTNESS OF BREATH; Start 08/06/18 at 14:30 Lorazepam (Ativan) 1 mg Q4H PRN IV CONTROL WITHDRAWAL SYMPTOMS Last administered on 08/06/18at 16:21; Admin Dose 1 MG; Start 08/06/18 at 14:30 Pantoprazole 80 mg/Sodium Chloride 100 ml @ 10 mls/hr Q10H IV Last administered on 08/08/18at 08:23; Admin Dose 10 MLS/HR; Start 08/06/18 at 16:00 Multivitamins 10 ml/Thiamine HCl 100 mg/Folic Acid 1 mg/Sodium Chloride 1,011.2 ml @ 125 mls/ hr DAILY@09 IVPB Last administered on 08/08/18at 08:23; Admin Dose 125 MLS/HR; Start 08/06/18 at 18:00 Octreotide Acetate 500 mcg/ Dextrose 50 ml @ 2.5 mls/hr Q20H IV Last administered on 08/07/18at 22:57; Admin Dose 2.5 MLS/HR; Start 08/06/18 at 18:00 Labetalol HCl (Labetalol) 10 mg PRN PRN IV FOR SBP>160; Start 08/07/18 at 01:00 Potassium Chloride/Dextrose/ Sod Cl 1,000 ml @ 40 mls/hr Q24H IV ; Start at 09:00 ANNITA LAWRENCE Aug 08, 2018 14:35
--- NOTE | 2018-08-08 15:09 | PN ---
Date/Time of Note Date/Time of Note DATE: 08/08/18 TIME: 15:07 Assessment/Plan VTE Prophylaxis Risk score (from Ns)>0 risk: 2 [place]CD applied [place] [facility] Yes Pharmacological prophylaxis: NA/contraindicated Pharm contraindication: bleeding Lines/Catheters IV Catheter Type (from [facility]): Peripheral IV Assessment/Plan Assessment/Plan A/P 1. GI bleed/ upper, mod stable, sp egd/ esophageal banding *5. cont PPI/ Sandostatin 2. Acute blood loss anemia 3. Alcoholism, watch for withdrawal 4. Portal hypertension 5. History of ascites. Last paracentesis more than a year ago. 6. Major depression 7. Tobacco abuse. Starting nicotine patch. 8. Possible COPD 9. History of salivary gland growth outpatient CT; defer to outpatient therapy 10. Hypothyroidism? t4/t3- P 11. Esophageal Varices III/IV Result Diagram: 08/08/18 0706 08/08/18 0451 Subjective 24 Hr Interval Summary Free Text/Dictation Patient feeling well. No withdrawal symptoms. Wants to smoke, will agree to nicotine patch. No bowel movement since Wednesday Exam/Review of Systems Exam Vitals Vital Signs Date Temp Pulse Resp B/P (MAP) Pulse Ox O2 O2 Flow FiO2 Time Delivery Rate 08/08/18 70 9 122/95 100 13:00 (104) 08/08/18 Room Air 12:00 08/08/18 98.3 08:00 08/06/18 2.0 13:15 Intake and Output 08/07/18 08/07/18 08/08/18 1515:00 23:00 07:00 IntakeIntake Total 1460.0 ml 760.0 ml 42.5 ml OutputOutput Total 800 ml 825 ml 250 ml BalanceBalance 660.0 ml -65.0 ml -207.5 ml Exam No pallor Regular no m/r/g Clear Benign No edema Results Results 24hrs Laboratory Tests Test 08/07/18 21:34 08/08/18 04:51 08/08/18 05:37 08/08/18 07:06 Hemoglobin 8.0 L 7.8 L 7.8 L Hematocrit 24.8 L 24.8 L 24.4 L White Blood Count 4.2 #L Red Blood Count 2.72 L Mean Corpuscular 91.2 Volume Mean Corpuscular 28.7 L Hemoglobin Mean Corpuscular 31.5 L Hemoglobin Concen t Red Cell 15.6 H Distribution Width Platelet Count 89 L Mean Platelet 10.6 H Volume Immature 0.500 H Granulocytes % Neutrophils % 68.3 Lymphocytes % 19.3 Monocytes % 8.8 Eosinophils % 2.9 Basophils % 0.2 Nucleated Red 0.0 Blood Cells % Immature 0.020 Granulocytes # Neutrophils # 2.9 Lymphocytes # 0.8 Monocytes # 0.4 Eosinophils # 0.1 Basophils # 0.0 Nucleated Red 0.0 Blood Cells # Sodium Level 139 Potassium Level 3.7 Chloride Level 110 Carbon Dioxide 26 Level Anion Gap 3 L Blood Urea 13 Nitrogen Creatinine 0.75 Est Glomerular > 60 Filtrat Rate mL/min Glucose Level 86 Calcium Level 7.6 L Phosphorus Level 3.0 Magnesium Level 1.8 Free Thyroxine 0.77 Total 0.57 L Triiodothyronine Lab Scanned BLOOD TRANSFUSION Report Medications Medication Current Medications IV Flush (NS 3 ml) 3 ml PER PROTOCOL IV ; Start 08/06/18 at 13:00 Ondansetron HCl (Zofran Inj) 4 mg Q4 PRN IV NAUSEA/VOMITING; Start 08/06/18 at 13:00 Acetaminophen (Tylenol Tab) 650 mg Q6H PRN PO .PAIN 1-3 OR TEMP; Start 08/06/18 at 13:00 Acetaminophen (Tylenol Supp) 650 mg Q6H PRN [place] .PAIN 1-3 OR TEMP; Start 08/06/18 at 13:00 Acetaminophen/ Hydrocodone Bitart ([place] (5/325)) 1 tab Q6H PRN PO .MOD PAIN 4- 6 Last administered on 08/08/18at 05:15; Admin Dose 1 TAB; Start 08/06/18 at 13:00 Morphine Sulfate (morphine) 2 mg Q4H PRN IV .SEVERE PAIN 7-10 Last administered on 08/08/18at 09:44; Admin Dose 2 MG; Start 08/06/18 at 13:00 Docusate Sodium (Colace) 100 mg Q12H PRN PO .CONSTIPATION; Start 08/06/18 at 13:00 Bisacodyl (Dulcolax) 5 mg DAILY PRN PO .CONSTIPATION; Start 08/06/18 at 13:00 Albuterol (Proventil 0.083% (Neb)) 1.25 mg Q2H RESP THERAPY PRN HHN SHORTNESS OF BREATH; Start 08/06/18 at 14:30 Lorazepam (Ativan) 1 mg Q4H PRN IV CONTROL WITHDRAWAL SYMPTOMS Last administered on 08/06/18at 16:21; Admin Dose 1 MG; Start 08/06/18 at 14:30 Multivitamins 10 ml/Thiamine HCl 100 mg/Folic Acid 1 mg/Sodium Chloride 1,011.2 ml @ 125 mls/ hr DAILY@09 IVPB Last administered on 08/08/18at 08:23; Admin Dose 125 MLS/HR; Start 08/06/18 at 18:00 Labetalol HCl (Labetalol) 10 mg PRN PRN IV FOR SBP>160; Start 08/07/18 at 01:00 Potassium Chloride/Dextrose/ Sod Cl 1,000 ml @ 40 mls/hr Q24H IV ; Start 08/08/18 at 09:00 Pantoprazole (Protonix Iv) 40 mg BID@06,18 IV ; Start 08/08/18 at 18:00 Propranolol HCl (Inderal) 10 mg BID PO ; Start 08/08/18 at 21:00; Status UNV Nicotine (Nicoderm 14 Mg/ 24hr) 1 patch DAILY TRANSDERM ; Start 08/08/18 at 15:30; Status UNV MIKAYLA VILLATORO MD Aug 08, 2018 15:08
[2018-08-08] MEDS: NICOTINE (14 MG/24 HR) PATCH TRANSDERM SCH (16:45)
[2018-08-08] MEDS: PANTOPRAZOLE 40 MG INJ IV SCH (17:09)
[2018-08-08] MEDS: PROPRANOLOL 10 MG TAB PO SCH (21:44)
[2018-08-09] VITALS: PULSE 71
[2018-08-09] MEDS: HYDROCODONE/APAP (5/325) TAB PO PRN (00:08)
[2018-08-09 04:00] VITALS: BP 106/70; PULSE 65; PULSE 78; RESP 18
[2018-08-09] MEDS: PANTOPRAZOLE 40 MG INJ IV SCH (06:42)
[2018-08-09 07:51] VITALS: BP 103/70; PULSE 61; RESP 19
[2018-08-09] MEDS: PROPRANOLOL 10 MG TAB PO SCH (08:22)
[2018-08-09] MEDS: NICOTINE (14 MG/24 HR) PATCH TRANSDERM SCH (08:22)
[2018-08-09 08:33] VITALS: PULSE 66
[2018-08-09] MEDS ORDERED: POLYETHYLENE GLYCOL 17 GM PACKET PO SCH (11:30)
[2018-08-09 11:41] VITALS: BP 110/70; PULSE 52; RESP 17
--- NOTE | 2018-08-09 12:18 | PN ---
Date/Time of Note Date/Time of Note DATE: 08/09/18 TIME: 12:14 Assessment/Plan VTE Prophylaxis Risk score (from Ns)>0 risk: 1 SCD applied (from Nsg): Yes Pharmacological prophylaxis: other (scds) Lines/Catheters IV Catheter Type (from [facility]): [place] [facility] Assessment/Plan Hospital Course Assessment: Impression: Upper GI bleeding/hematemesis. EGD 08/07/18 Impression: Grade II-III/IV esophageal varices with stigmata recent bleeding i.e. white plug x2 Moderate amounts of all blood and clots obscuring the proximal fundus of the stomach Otherwise no potential bleeding lesions identified. Post endoscopic variceal ligation x5 Severe anemia likely secondary to above. History of alcohol abuse Plan: Soft diet recheck H/H- now Continue PPI therapy BID x4 weeks- then daily until seen in clinic Propranolol 10 mg p.o. twice daily as blood pressure allows- for EV prophylactics recommend to monitor over night- if patient can tolerate diet and Hgb is stable ok to d/c from GI point of view Pt to f/u with GI for repeat EGD 3 months Monitor H&H and transfuse as necessary . Subjective: Course reviewed with nursing staff Patient interviewed and examined All labs, imaging and other results reviewed Pt noted dark stool x2 episodes today Currently no pain. Patient states he is going to leave today. Discussed plan to recheck H/h and advance diet to soft Patient is agreeable. Abd us trace ascites-not enough for paracentesis. Exam PHYSICAL EXAMINATION: GENERAL: Alert & oriented x 3, in no acute distress SKIN: No lesions EYES: Pupils equal reactive to light and accommodation, no discharge. EARS/NOSE AND THROAT: Ears normal, nose normal, oropharynx normal, oral membranes well hydrated without lesions. NECK: Supple, no masses CHEST: Inspection within normal limits. CARDIOVASCULAR: Heart: Regular rate and rhythm RESPIRATORY: Lungs clear to auscultation and percussion, no wheezing, no rubs GASTROINTESTINAL AND LIVER: Abdomen: Soft, epigastric tenderness- improved, moderately distended, no hernias, no masses, no organomegaly, no ascites, no guarding, no rebound tenderness, normoactive bowel sounds. Rectal: Deferred. Result Diagram: 08/08/18 4731 08/08/18 0451 Results 24hrs Laboratory Tests Test 08/08/18 21:17 Hemoglobin 8.5 L Hematocrit 27.0 L Exam/Review of Systems Exam Vitals Vital Signs Date Temp Pulse Resp B/P (MAP) Pulse Ox O2 O2 Flow FiO2 Time Delivery Rate 08/09/18 98.8 52 17 110/70 100 11:41 (83) 08/09/18 21 01:55 08/08/18 Room Air 18:16 08/06/18 2.0 13:15 Intake and Output 08/08/18 08/08/18 08/09/18 1515:00 23:00 07:00 IntakeIntake Total 1455.0 ml 250 ml 400 ml OutputOutput Total 500 ml BalanceBalance 955.0 ml 250 ml 400 ml Results Results 24hrs Laboratory Tests Test 08/08/18 21:17 Hemoglobin 8.5 L Hematocrit 27.0 L Medications Medication Current Medications IV Flush (NS 3 ml) 3 ml PER PROTOCOL IV ; Start 08/06/18 at 13:00 Ondansetron HCl (Zofran Inj) 4 mg Q4 PRN IV NAUSEA/VOMITING; Start 08/06/18 at 13:00 Acetaminophen (Tylenol Tab) 650 mg Q6H PRN PO .PAIN 1-3 OR TEMP; Start 08/06/18 at 13:00 Acetaminophen (Tylenol Supp) 650 mg Q6H PRN [place] .PAIN 1-3 OR TEMP; Start 08/06/18 at 13:00 Acetaminophen/ Hydrocodone Bitart ([place] (5/325)) 1 tab Q6H PRN PO .MOD PAIN 4- 6 Last administered on 08/09/18at 00:08; Admin Dose 1 TAB; Start 08/06/18 at 13:00 Morphine Sulfate (morphine) 2 mg Q4H PRN IV .SEVERE PAIN 7-10 Last administered on 08/08/18at 09:44; Admin Dose 2 MG; Start 08/06/18 at 13:00 Docusate Sodium (Colace) 100 mg Q12H PRN PO .CONSTIPATION; Start 08/06/18 at 13:00 Bisacodyl (Dulcolax) 5 mg DAILY PRN PO .CONSTIPATION; Start 08/06/18 at 13:00 Albuterol (Proventil 0.083% (Neb)) 1.25 mg Q2H RESP THERAPY PRN HHN SHORTNESS OF BREATH; Start 08/06/18 at 14:30 Lorazepam (Ativan) 1 mg Q4H PRN IV CONTROL WITHDRAWAL SYMPTOMS Last administered on 08/06/18 16:21; Admin Dose 1 MG; Start 08/06/18 at 14:30 Multivitamins 10 ml/Thiamine HCl 100 mg/Folic Acid 1 mg/Sodium Chloride 1,011.2 ml @ 125 mls/ hr DAILY@09 IVPB Last administered on 08/08/18at 08:23; Admin Dose 125 MLS/HR; Start 08/06/18 at 18:00 Labetalol HCl (Labetalol) 10 mg PRN PRN IV FOR SBP>160; Start 08/07/18 at 01:00 Pantoprazole (Protonix Iv) 40 mg BID@06,18 IV Last administered on 08/09/18at 06:42; Admin Dose 40 MG; Start 08/08/18 at 18:00 Propranolol HCl (Inderal) 10 mg BID PO Last administered on 08/09/18at 08:22; Admin Dose 10 MG; Start 08/08/18 at 21:00 Nicotine (Nicoderm 14 Mg/ 24hr) 1 patch DAILY TRANSDERM Last administered on 08/09/18at 08:22; Admin Dose 1 PATCH; Start 08/08/18 at 16:30 Polyethylene Glycol (Miralax) 17 gm DAILY PO ; Start 08/09/18 at 11:30 ANNITA LAWRENCE Aug 09, 2018 12:18
[2018-08-09 12:57] VITALS: PULSE 67
[2018-08-09] MEDS: MULTIVITAMINS 10 ML, THIAMINE 100 MG, FOLIC ACID 1 MG in SOD CHLORIDE 0.9% 1,000 ML IVPB SCH (13:01)
--- NOTE | 2018-08-09 14:15 | DS ---
Date/Time of Note Date/Time of Note DATE: 08/09/18 TIME: 14:14 Discharge Summary Admission/Discharge Info Admit Date/Time Aug 06, 2018 at 12:15 Discharge Date/Time Aug 09, 2018 at 13:05 Discharge Diagnosis Cirrohsis Patient Condition: Stable Hospital Course Patient presented with hematemasis. He was treated with octreotide and IV PPI. He underwent endoscopy showing varices which were banded. H/H was stable. He left today AMA prior to my full evaluation Home Meds Reported Medications Furosemide* (Furosemide*) 40 Mg Tablet, 40 MG PO DAILY, TAB 08/06/18 Primary Care Provider Care Physician No Primary Pending Labs Laboratory Tests Test 08/08/18 21:17 08/09/18 12:35 Hemoglobin 8.5 g/dl (14.0-18.0) 9.5 g/dl (14.0-18.0) Hematocrit 27.0 % (42.0-52.0) 30.3 % (42.0-52.0) Hepatitis B Surface Antigen NEGATIVE (NEGATIVE) Hepatitis B Surface Antibody NEGATIVE (NEGATIVE) Hepatitis B Core Total Antibody Pending Hepatitis C Antibody Pending CAMMY CLAY MD Aug 09, 2018 14:15
== END 2018-08-09 13:05 | disposition left against medical advice (07) | DRG 432 ==
LOC: E/R 10:45 → ICU 12:15 → TEL 08-08 18:08
PROVIDERS: ADMIT Internal Medicine; ATTEND Internal Medicine
PROC: 30233N1 Transfusion of Nonautologous Red Blood Cells into Peripheral Vein, Percutaneous Approach (ICD-10-PCS; 2018-08-06)
PROC: 06L38CZ Occlusion of Esophageal Vein with Extraluminal Device, Via Natural or Artificial Opening Endoscopic (ICD-10-PCS; principal; 2018-08-06 14:00)
DX: K70.30 Alcoholic cirrhosis of liver without ascites (principal); I85.11 Secondary esophageal varices with bleeding; D62 Acute posthemorrhagic anemia; K76.6 Portal hypertension; E03.9 Hypothyroidism, unspecified; F10.20 Alcohol dependence, uncomplicated; F32.9 Major depressive disorder, single episode, unspecified; F17.200 Nicotine dependence, unspecified, uncomplicated; J44.9 Chronic obstructive pulmonary disease, unspecified
CPT/HCPCS: 36415; 36430; 71045; 76705; 80048; 80053; 83036; 83735; 84100; 84439; 84443; 84480; 84484; 85014; 85018; 85025; 85610; 85730; 86644; 86704; 86706; 86803; 86850; 86900; 86901; 86920; 87081; 87340; 93005; 96365; 96368; 96375; 96376; C9113; J0696; J2060; J2270; J2354; J2405; J3411; J3480; J7030; J7040; P9016

== ENCOUNTER 2018-09-27 15:02 | Day surgery (SDC) | payer OTHER ==
[~2018-09-27] VITALS: Ht 193 cm; Wt 93.0 kg
[2018-09-27] VITALS (16 sets, daily range): BP systolic 117–163; BP diastolic 67–99; PULSE 88–98; RESP 10–23; Ht 193 cm; Wt 93.0 kg
[~2018-09-27 15:02] MED LIST: FER325 PO; FURO40TA4 PO; HYDR-3980 PO; PANT40TA3 PO; POTA20TA96 PO; SPIR25TA PO
--- NOTE | 2018-09-27 17:11 | PREAC ---
Date/Time of Note Date/Time of Note DATE: 09/27/18 TIME: 17:08 Anesthesia Eval and Record Evaluation Time Pre-Procedure Interview DATE: 09/27/18 TIME: 17:08 Age 58 Sex male NPO: 8 hrs Preoperative diagnosis malignant neoplasm of larynx Planned procedure direct laryngoscopy biopsy Past Medical History Past Medical History: None Surgery & Anesthesia Issues No known issue Meds Anticoagulation: No Beta Antoine within 24 hr: No Reason Beta Antione not given: Pt. not on B-Antoine Reported Medications Furosemide* (Furosemide*) 40 Mg Tablet, 40 MG PO DAILY, TAB 08/06/18 Meds reviewed: Yes Allergies Coded Allergies: No Known Allergy (Unverified , 08/06/18) Allergies Reviewed: Yes Labs/Studies Labs Reviewed: Reviewed by anesthesiologist test: N/A Studies: ECG (sr), CXR (mild basilar interestitial prominence) Pre-procedure Exam Last vitals Vital Signs Date Temp Pulse Resp B/P (MAP) Pulse Ox O2 O2 Flow FiO2 Time Delivery Rate 09/27/18 98.6 94 18 121/75 98 Room Air 16:33 (90) Airway: Adequate mouth opening Mallampati: Mallampati I Teeth: Normal Lung: Normal Heart: Normal ASA Physical Status ASA physical status: 2 Emergency: None Planned Anesthetic General/MAC: ETT Planned Pain Management Parenteral pain med Pre-operative Attestations Prior to commencing anesthesia and surgery, the patient was re-evaluated, there was verification of: *The patient's identity *The results of appropriate recent lab work and preoperative vital signs *The above evaluation not changing prior to induction *Anesthetic plan, risk benefits, alternative and complications discussed with patient/family; questions answered; patient/family understands, accepts and wishes to proceed. JOSÉ MIGUEL DIAZ MD Sep 27, 2018 17:11
[2018-09-27] MEDS ORDERED: MIDAZOLAM 1 MG/ML 2 ML INJ ONE (17:18)
[2018-09-27] MEDS ORDERED: ONDANSETRON 4 MG INJ ONE (17:18)
[2018-09-27] MEDS ORDERED: DEXAMETHASONE 4 MG/ML 5 ML INJ ONE (17:18)
[2018-09-27] MEDS ORDERED: PROPOFOL 20 ML ONE ×3 (17:18→18:38)
[2018-09-27] MEDS ORDERED: SUCCINYLCHOLINE CHLORIDE 100 MG/5 ML SYG IV ONE ×2 (17:18→18:41)
[2018-09-27] MEDS ORDERED: FENTAnyl 50 MCG/ML VIAL IV PRN ×2 (17:30)
[2018-09-27] MEDS ORDERED: ONDANSETRON 4 MG INJ IV PRN (17:30)
[2018-09-27] MEDS ORDERED: FENTAnyl 50 MCG/ML VIAL ONE ×2 (17:34→19:04)
--- NOTE | 2018-09-27 17:34 | HPN ---
Date/Time of Note Date/Time of Note DATE: 09/27/18 TIME: 17:34 Interval H&P Admission Note Pt. seen H&P reviewed: No system changes TANIA DEL TORO MD Sep 27, 2018 17:34
[2018-09-27] MEDS ORDERED: EPINEPHrine 1 MG/ML 30 ML INJ ONE (17:56)
[2018-09-27] MEDS ORDERED: EPINEPHrine 10 MCG/1ml (10 ML SYG) IV ONE (17:58)
[2018-09-27] MEDS ORDERED: EPINEPHrine 1 MG INJ ONE (17:59)
[2018-09-27] MEDS ORDERED: LIDOCAINE 2% (SDV) 5 ML INJ ONE (18:10)
--- NOTE | 2018-09-27 19:20 | OPR ---
Date/Time of Note Date/Time of Note DATE: 09/27/18 TIME: 18:32 Operative Report Procedure Date: Sep 27, 2018 Preoperative Diagnosis Supraglottic cancer, left. 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 Procedure Description Description of procedure: The patient was identified in the holding area. We had a discussion to confirm understanding of all indications risks benefits alternatives and postoperative care associated with the operation. The patient signed informed consent was taken to the operating room. The patient was laid supine on the operating room table and general anesthesia was achieved without difficulty. The face was draped in sterile fashion. A rigid laryngoscope was placed intraorally and used to retract the oral cavity open, taking care to avoid damage to the teeth. The oral cavity and pharynx were inspected and palpated. The pharynx and larynx were inspected. Glottic larynx was normal. AE fold on the left was involved with the tumor. Extending to the tongue base on the left. Posterior pharyngeal wall was spared. Several biopsies were taken and sent for frozen section analysis. Epinephrine one to 10,000 was used to help achieve hemostasis. Frozen section of initial specimen was benign. Deeper segments began to show high grade dysplasia. Pathology recommended preserving other tissues to prevent loss during frozen section analysis. Given the extensive number of biopsies and pathology recommendation, the procedure was deemed complete. At this point secondary inspection revealed no bleeding or oozing. The patient was awakened, extubated and taken to the PACU by anesthesia. Complications: None TANIA DEL TORO MD Sep 27, 2018 18:42
[2018-09-27] MEDS: FENTAnyl 50 MCG/ML VIAL IV PRN ×2 (20:08→20:25)
--- NOTE | 2018-09-27 20:12 | PAC ---
Date/Time of Note Date/Time of Note DATE: 09/27/18 TIME: 20:11 Post-Anesthesia Notes Post-Anesthesia Note Last documented vital signs Vital Signs Date Temp Pulse Resp B/P (MAP) Pulse Ox O2 O2 Flow FiO2 Time Delivery Rate 09/27/18 90 16 Simple 8.0 19:50 Mask 09/27/18 98.3 94 15 163/89 98 19:46 (113) 09/27/18 98.3 19:38 Activity: WNL Respiratory function: WNL Cardiovascular function: WNL Mental status: Baseline Pain reasonably controlled: Yes Hydration appropriate: Yes Nausea/Vomiting absent: No JOSÉ MIGUEL DIAZ MD Sep 27, 2018 20:12
== END 2018-09-27 21:15 | disposition home or self-care (01) ==
LOC: SDS 15:02
PROVIDERS: ATTEND Otolaryngology
DX: C32.1 Malignant neoplasm of supraglottis (principal); K14.8 Other diseases of tongue; G44.229 Chronic tension-type headache, not intractable; I85.01 Esophageal varices with bleeding
CPT/HCPCS: 31535; 88307; 88331; J0171; J1100; J2250; J2405; J3010; Z7512; Z7610

== ENCOUNTER 2018-09-30 05:51 | Emergency (ER) | payer OTHER ==
[~2018-09-30] VITALS: Ht 182.9 cm; Wt 96.4 kg
[2018-09-30] MEDS ORDERED: OCTREOTIDE 50 MCG in SOD CHLORIDE 0.9% 25 ML IVPB STA (06:13)
[2018-09-30] MEDS ORDERED: PANTOPRAZOLE IV 80 MG in SOD CHLORIDE 0.9% 100 ML IVPB STA (06:13)
[2018-09-30] MEDS ORDERED: SOD CHLORIDE 0.9% 1,000 ML IV STA (06:13)
[2018-09-30] MEDS ORDERED: FAMOTIDINE 20 MG INJ IV STA (06:13)
[2018-09-30] MEDS ORDERED: PANTOPRAZOLE IV 80 MG in SOD CHLORIDE 0.9% 100 ML IV STA (06:13)
[2018-09-30] MEDS ORDERED: ONDANSETRON 4 MG INJ IV STA (06:13)
[2018-09-30] MEDS ORDERED: OCTREOTIDE 500 MCG in SOD CHLORIDE 0.9% 49 ML IV STA (06:13)
--- NOTE | 2018-09-30 06:32 | ERD ---
ER Documentation Chief Complaint Chief Complaint [id number],from home,black tarry stool,hematemesis,denies pain HPI This is a 58-year-old male with a past medical history of alcoholism. The patient states that his last consumption of alcohol was roughly 12 hours ago. He stated that for the past 12 hours he has had multiple episodes of black loose tarry stools. Just prior to arrival he had one episode of hematemesis. He described it as bright red blood the size of a quarter. Indicate he had a similar episode two months ago where he required an emergent upper endoscopy with banding from esophageal varices causing his hematemesis. This occurred on August 06, 2018. The patient's hemoglobin at that time was 6.2. The patient had left AGAINST MEDICAL ADVICE on August 09, 2018 and his hemoglobin was 9.5. The patient also states that 3 days ago he had an outpatient procedure performed at [facility]. The procedure included a biopsy of the left supraglottic tumor as he had been experiencing paralysis of his left tongue. He denies any blood within the oropharynx. No pain over the biopsy site. No dysphagia. No difficulty breathing. He denies any abdominal pain. He denies headache. He denies any shortness of breath. He has no chest pain. Patient indicates he is been compliant with his medications which include Spironolactone and furosemide. He has a known history of ascites. His last paracentesis was 1 year ago. He denies any worsening abdominal distention. The patient also takes iron. ROS All systems reviewed and are negative except as per history of present illness. Medications Home Meds Active Scripts Pantoprazole* (Protonix*) 40 Mg Tablet., 40 MG PO DAILY, #20 TAB Prov:MARLENY SÁNCHEZ MD 09/30/18 Reported Medications Furosemide* (Furosemide*) 40 Mg Tablet, 40 MG PO DAILY, TAB 08/06/18 Allergies Allergies: Coded Allergies: No Known Allergy (Unverified , 08/06/18) PMhx/Soc History of Surgery: Yes (UMB HERNIA REPAIR) Anesthesia Reaction: No Hx Neurological Disorder: No Hx Respiratory Disorders: No Hx Cardiac Disorders: No Hx Psychiatric Problems: No Hx Miscellaneous Medical Probl: No Hx Alcohol Use: Yes (EVERY DAY) Hx Substance Use: Yes (ethanol) Hx Tobacco Use: Yes Physical Exam Vitals Vital Signs Date Temp Pulse Resp B/P (MAP) Pulse Ox O2 O2 Flow FiO2 Time Delivery Rate 09/30/18 98.7 93 18 122/87 100 06:59 (99) 09/30/18 98.7 116 18 137/87 98 05:54 (104) Physical Exam Constitutional:Well-developed. Well-nourished. HEENT:Normocephalic. Atraumatic.Pupils were equal round reactive to light. Moist mucous membranes.No tonsillar exudates. No conjunctival pallor Neck: No nuchal rigidity. No lymphadenopathy. No posterior cervical spine tenderness or step-offs. Respiratory: Not using accessory muscles of respiration.Lungs were clear to auscultation bilaterally. No rhonchi. No rales. No wheezing. Cardiovascular: Regular rate regular rhythm.No murmurs. No rubs were appreciated.S1, S2 normal. Distal pulses are palpable 2+ bilaterally. GI: Abdomen was soft. Nontender. Distended with no tense ascites. Positive fluid thrill.. No pulsatile abdominal masses or bruits. No rebound. No guarding. Bowel sounds were present and normal. : Black tarry stools with fecal occult blood test positive. Muscle skeletal: Full range of motion of both the upper and lower extremities bilaterally.Normal muscle tone.No assymetrical calf tenderness or swelling. Skin: No petechia, no purpura. No lesions on the palms or the soles of the feet. No maculopapular rash. NEURO: Patient was alert, awake, orientated x3.No facial droop. Gait observed and normal with no ataxia.Speech had regular rate and rhythm. No focal neurological deficits. Result Diagram: 09/30/1828 09/30/1828 Results 24 hrs Laboratory Tests Test 09/30/18 06:28 White Blood Count 9.7 10^3/ul Red Blood Count 3.53 10^6/ul Hemoglobin 9.5 g/dl Hematocrit 31.9 % Mean Corpuscular Volume 90.4 fl Mean Corpuscular Hemoglobin 26.9 pg Mean Corpuscular Hemoglobin Concent 29.8 g/dl Red Cell Distribution Width 21.1 % Platelet Count 141 10^3/UL Mean Platelet Volume 10.8 fl Immature Granulocytes % 0.900 % Neutrophils % 77.4 % Lymphocytes % 10.1 % Monocytes % 11.1 % Eosinophils % 0.3 % Basophils % 0.2 % Nucleated Red Blood Cells % 0.0 /100WBC Immature Granulocytes # 0.090 10^3/ul Neutrophils # 7.5 10^3/ul Lymphocytes # 1.0 10^3/ul Monocytes # 1.1 10^3/ul Eosinophils # 0.0 10^3/ul Basophils # 0.0 10^3/ul Nucleated Red Blood Cells # 0.0 10^3/ul Prothrombin Time 16.7 Sec Prothrombin Time Ratio 1.3 INR International Normalized Ratio 1.34 Activated Partial Thromboplast Time 35.2 Sec Sodium Level 143 mmol/L Potassium Level 4.2 mmol/L Chloride Level 106 mmol/L Carbon Dioxide Level 28 mmol/L Anion Gap 9 Blood Urea Nitrogen 29 mg/dl Creatinine 0.69 mg/dl Est Glomerular Filtrat Rate mL/min > 60 mL/min Glucose Level 141 mg/dl Calcium Level 9.0 mg/dl Total Bilirubin 1.4 mg/dl Direct Bilirubin 0.00 mg/dl Indirect Bilirubin 1.4 mg/dl Aspartate Amino Transf (AST/SGOT) 59 IU/L Alanine Aminotransferase (ALT/SGPT) 22 IU/L Alkaline Phosphatase 82 IU/L Troponin I < 0.012 ng/ml Total Protein 6.6 g/dl Albumin 3.6 g/dl Globulin 3.00 g/dl Albumin/Globulin Ratio 1.20 Amylase Level 58 U/L Lipase 148 U/L Ethyl Alcohol Level mg/dl Current Medications Medications Dose Sig/Azra Start Time Status Last (Trade) Ordered Route PRN Stop Time Admin Dose Reason Admin Sodium 1,000 ml @ Q1H STAT 09/30/18 DC 09/30/18 Chloride 1,000 mls/hr IV 06:13 09/30/18 06:43 07:12 Famotidine 20 mg ONCE STAT 09/30/18 DC 09/30/18 (Pepcid Iv) IV 06:13 09/30/18 06:43 06:15 Pantoprazole 100 ml @ ONCE STAT 09/30/18 DC 09/30/18 80 mg/Sodium 400 mls/hr IVPB 06:13 09/30/18 07:35 Chloride 06:27 Pantoprazole 100 ml @ ONCE STAT 09/30/18 09/30/18 80 mg/Sodium 10 mls/hr IV 06:13 09/30/18 07:59 Chloride 16:12 Octreotide 26 ml @ Q16M STAT 09/30/18 DC 09/30/18 Acetate 50 100 mls/hr IVPB 06:13 09/30/18 07:34 mcg/ Sodium 06:28 Chloride Octreotide 50 ml @ 5 ONCE STAT 09/30/18 09/30/18 Acetate 500 mls/hr IV 06:13 09/30/18 08:00 mcg/ Sodium 16:12 Chloride Ondansetron 4 mg ONCE STAT 09/30/18 DC 09/30/18 HCl (Zofran IV 06:09/30/18 06:43 Inj) 06:16 Procedures/MDM The patient presented to the emergency department with a presentation of upper gastrointestinal bleeding. My differential diagnosis included but was not garcia ited to peptic ulcer disease, gastric or esophageal erosions, gastritis, esophageal varices, Lilli-Dunne tear, tumor or arteriovenous malformations. Patient was placed on a roofing applicator continuous pulse oximetry and IV access was established by nursing to. The patient was given IV Protonix and octreotide. The patient was also given IV Zofran. The patient did not experience any hematemesis while in the emergency department. The patient's hemoglobin was 9.5. The patient's hemoglobin has been stable at 9.5 since August 09, 2018 when the patient had left AGAINST MEDICAL ADVICE after receiving banding from esophageal varices. When the patient initially arrived to the hospital at that time his hemoglobin was 6.2. 12 Lead EKG tracing ordered and reviewed by myself showed: Sinus tachycardia 103 bpm and no arrhythmia. IA interval normal. QRS duration normal. No ST segment elevation No ST segment depression. No changes consistent with acute ischemia. I obtained a 1 view chest radiograph and there is no free air underneath the diaphragm. No pneumothorax and no infiltrates. Observation Note: Time: 4 hours Family Hx: No Hypertension Evaluation: Multiple exams showed improving symptoms and no evidence of worsening of his symptoms. I did feel that he could be safely discharged as he had no active hematemesis or bright red blood per rectum while in the emergency department. He will be sent home with Protonix. Alcohol cessation was discussed with the patient. The patient was discharged home in fair condition. They were instructed to return to the emergency department at any time if there was any worsening of their condition. The patient stated they would follow up with their PCP in the next 24-48 hours to initiate a suitable medication regimen under the care of their PCP as well as to allow their PCP to monitor any drug reactions. The patient was discharged home with prescriptions after they gave informed consent to the new medication. They were also fully informed by myself on the adverse effects and adverse drug interactions in order to provide adequate safeguards to prevent possible adverse reactions to medications. Departure Diagnosis: Primary Impression: Upper GI bleed Additional Impression: Anemia Anemia type: unspecified type Qualified Codes: D64.9 - Anemia, unspecified Condition: Serious MARLENY SÁNCHEZ MD Sep 30, 2018 06:32
[2018-09-30 06:59] VITALS: Ht 182.9 cm; Wt 96.4 kg
[2018-09-30] MEDS ORDERED: LORAZEPAM 2 MG INJ IV ONE (09:00)
[2018-09-30 11:15] VITALS: BP 121/78; PULSE 85; RESP 18
== END 2018-09-30 11:28 | disposition home or self-care (01) ==
LOC: E/R 05:51
DX: K92.2 Gastrointestinal hemorrhage, unspecified (principal); D64.9 Anemia, unspecified; R40.2142 Coma scale, eyes open, spontaneous, at arrival to emergency department; R40.2362 Coma scale, best motor response, obeys commands, at arrival to emergency department; R40.2252 Coma scale, best verbal response, oriented, at arrival to emergency department; R07.9 Chest pain, unspecified; Z87.891 Personal history of nicotine dependence
CPT/HCPCS: 36415; 71045; 80053; 80307; 82140; 82150; 83690; 84484; 85025; 85610; 85730; 86850; 86900; 86901; 93005; 96374; 96375; 96376; C9113; J2060; J2354; J2405; J7030; Z7502; Z7610; 88321; 88342